=== PATIENT | female | born 1985 | race Caucasian/White ===

== ENCOUNTER 2023-08-29 16:24 | Emergency (ER) | payer MEDICARE, MEDICAID ==
[2023-08-29 17:44] LABS: BASOPHILS % (AUTO) 0.3 %; EOSINOPHILS # (AUTO) 0.1 10^3/uL (0.0-0.7); EOSINOPHILS % (AUTO) 1.2 %; HCT - HEMATOCRIT 25.1 % (37.0-47.0); HGB - HEMOGLOBIN 8.2 g/dL (12.0-16.0); LYMPHOCYTES # (AUTO) 0.2 10^3/uL (1.5-3.5); LYMPHOCYTES % (AUTO) 3.1 %; MEAN CORPUSCULAR HEMOGLOBIN 32.8 pg (27.0-31.0); MEAN CORPUSCULAR HGB CONC 32.7 g/dL (32.0-36.0); MEAN CORPUSCULAR VOLUME 100.4 fL (81.0-99.0); MONOCYTES # (AUTO) 0.7 10^3/uL (0.0-1.0); MONOCYTES % (AUTO) 8.5 %; NEUTROPHILS # (AUTO) 6.6 10^3/uL (1.5-6.6); NEUTROPHILS % (AUTO) 86.2 %; WHITE BLOOD COUNT 7.6 x10^3/uL (4.8-10.8)
[2023-08-29 17:51] LABS: POTASSIUM 3.2 mmol/L (3.5-4.5)
[2023-08-29 17:56] LABS: ALBUMIN 3.1 g/dL (3.2-5.5); ALBUMIN/GLOBULIN RATIO 0.9 (1.0-2.2); CALCIUM 8.7 mg/dL (8.5-10.3); TOTAL PROTEIN 6.5 g/dL (6.4-8.9)
[2023-08-29 18:06] LABS: PLT - PLATELET COUNT 27 10^3/uL (130-450)
[2023-08-29 18:18] LABS: PLATELET ESTIMATE, MANUAL DECREASED (<130,000) (NORMAL); PLATELET MORPHOLOGY NORMAL APPEARANCE (NORMAL); SLIDE REVIEW? Indicated
[2023-08-29] MEDS: PROMETHAZINE 25 MG/1 ML VIAL IM STA (18:22)
[2023-08-29] MEDS: BUPRENORPHINE/NALOXONE 8-2 MG TAB SL STA (18:22)
[2023-08-29] MEDS: LORazepam 2 MG/ML VIAL IM STA (18:22)
--- NOTE | 2023-08-29 18:28 | ED Physician Documentation ---
History of Present Illness - Stated complaint Stated Complaint: PX MANAGEMENT - Chief complaint Chief Complaint: Abd Pain - History obtained from History obtained from: Patient - History of Present Illness Timing: Today Pain level max: 5 Pain level now: 5 - Additonal information Additional information: Roxanna is a 38-year-old female with a history of liver cirrhosis, cared for at [facility] in [place]. She also has care at [facility]. She comes in today stating that she has not had her Suboxone for the past 3 days. She states that she is having increasing ascites again. No chills. Last paracentesis was 3 days ago at [facility]. She states she is concerned about potential internal bleeding as well. Her stools are no different than usual. No vomiting. She is requesting pain medication, nausea medication and anxiety medication. Patient denies any fevers, vomiting. She states that she is currently on tube feedings. 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 Review of Systems Constitutional: denies: Fever, Chills Throat: denies: Sore throat Cardiac: denies: Chest pain / pressure, Palpitations Respiratory: denies: Dyspnea, Cough GI: denies: Vomiting, Diarrhea, Hematemesis, Bloody / black stool : denies: Dysuria, Frequency, Hesitancy Skin: denies: Rash Musculoskeletal: denies: Neck pain, Back pain Neurologic: denies: Headache PD PAST MEDICAL HISTORY - Past Medical History Past Medical History: Yes Cardiovascular: Deep vein thrombosis GI: Other Psych: ADD/ADHD - Past Surgical History Past Surgical History: Yes General: Liver surgery - Present Medications Home Medications: Ambulatory Orders Medication Instructions Recorded Confirmed Dextroamphetamine/Amphetamine 15 mg PO BID 02/15/14 07/06/14 [Amphetamine Salts 15 mg Tablet] Methadone HCl 100 gm MC DAILY 02/15/14 07/06/14 Promethazine [Phenergan] 25 - 50 mg PO Q6H PRN 02/15/14 07/06/14 Erythromycin Base [Erythromycin] 1 applic OP Q4H #1 tub 07/06/14 clonazePAM [Clonazepam] 1 mg PO BID 07/06/14 07/06/14 - Allergies Allergies/Adverse Reactions: Allergies Allergy/AdvReac Type Severity Reaction Status Date / Time No Known Drug Allergies Allergy Verified 08/29/23 16:35 - Social History Does the pt smoke?: Yes Smoking Status: Current every day smoker Does the pt drink ETOH?: No Does the pt have substance abuse?: No - Immunizations Immunizations are current?: No PD ED PE NORMAL - Vitals Vital signs reviewed: Yes - General General: Alert and oriented X 3, No acute distress, Other (Jaundiced female) - HEENT HEENT: PERRL, Moist mucous membranes - Neck Neck: Supple, no meningeal sign - Cardiac Cardiac: RRR, Strong equal pulses - Respiratory Respiratory: No respiratory distress, Clear bilaterally - Abdomen Abdomen: Normal bowel sounds, Soft, Non tender, Other (Distended abdomen, soft, nontender. Not tense.) - Derm Derm: Warm and dry - Extremities Extremities: No edema - Neuro Neuro: Alert and oriented X 3 - Psych Psych: Normal mood, Normal affect Results - Vitals Vitals: Vital Signs - 24 hr 08/29/23 08/29/23 08/29/23 16:31 17:56 18:35 Temperature 36.8 C 37.1 C Heart Rate 88 75 79 Respiratory 16 24 24 Rate Blood Pressure 122/51 L 119/66 94/59 L O2 Saturation 100 100 100 08/29/23 19:11 Temperature 36.8 C Heart Rate 81 Respiratory 17 Rate Blood Pressure 99/59 L O2 Saturation 99 Oxygen O2 Source Room air - Labs Labs: Laboratory Tests 08/29/23 08/29/23 17:30 17:30 WBC 7.6 RBC 2.50 L Hgb 8.2 L Hct 25.1 L MCV 100.4 H MCH 32.8 H MCHC 32.7 RDW 22.0 H Plt Count 27 L* Neut # (Auto) 6.6 Lymph # (Auto) 0.2 L [place] # (Auto) 0.7 Eos # (Auto) 0.1 Baso # (Auto) 0.0 Absolute Nucleated RBC 0.00 Nucleated RBC % 0.0 Manual Slide Review Indicated Platelet Estimate DECREASED (<130,000) Platelet Morphology NORMAL APPEARANCE RBC Morph Micro Appear 1+ SCHISTOCYTES Sodium 136 Potassium 3.2 L Chloride 108 Carbon Dioxide 20 L Anion Gap 8.0 BUN 45 H Creatinine 1.0 Estimated GFR (MDRD) 62 L Glucose 116 H Calcium 8.7 Total Bilirubin 52.2 H AST 598 H ALT 81 H Alkaline Phosphatase 243 H Total Protein 6.5 Albumin 3.1 L Globulin 3.4 Albumin/Globulin Ratio 0.9 L Lipase 110 H PD Medical Decision Making - ED course Complexity details: reviewed results, re-evaluated patient, considered differential, d/w patient ED course: Patient with chronic anemia, chronic thrombocytopenia. She has significant hy perbilirubinemia. Has labs consistent with liver failure. Patient states that she will follow-up as an outpatient for her paracentesis. Her labs are no different than her recent laboratory studies at [facility]. She is in no respiratory distress. Does not have tense ascites. No evidence of active bleeding. Recommend that she follow-up with her doctor for further care. Informed her that her Suboxone prescription is ready at her pharmacy in [place]. Patient states that she does not have any other needs for the emergency department at this time. Patient counseled regarding signs and symptoms for which I believe and urgent re-evaluation would be necessary. Patient with good understanding of and agreement to plan and is comfortable going home at this time This document was made in part using voice recognition software. While efforts are made to proofread this document, sound alike and grammatical errors may occur. Departure - Departure Disposition: Home, Self Care Clinical Impression: Thrombocytopenia Liver failure Qualifiers: Liver failure chronicity: unspecified chronicity Hepatic coma status: without hepatic coma Qualified Code(s): K72.90 - Hepatic failure, unspecified without coma Cirrhosis Qualifiers: Hepatic cirrhosis type: unspecified hepatic cirrhosis Ascites presence: with a scites Qualified Code(s): K74.60 - Unspecified cirrhosis of liver Anemia Qualifiers: Anemia type: unspecified type Qualified Code(s): D64.9 - Anemia, unspecified Condition: Good Instructions: ED Abdominal Pain Female Non-Specific Abdominal Pain Follow-Up: your,doctor in 1 week [Other] Comments: As we discussed your Suboxone was filled at [facility] in [place] on August 25. 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 You were given your dose of Suboxone today. You are also given Ativan, Phenergan and Benadryl. Your blood counts are stable from your visit at [facility] a few days ago. Recommend that you follow-up as an outpatient for scheduled paracentesis as this is a safer way to do this procedure. Your doctor can send an order to the radiology department here to have the paracentesis scheduled. Please follow-up with your doctor for further care. Forms: PCP List Discharge Date/Time: 08/29/23 19:13
[2023-08-29] MEDS: diphenhydrAMINE INJ 50 MG/ML VIAL IM STA (18:34)
[2023-08-29 19:16] VITALS: BP 99/59; O2SAT 99
[2023-08-29 19:26] LABS: BILIRUBIN,TOTAL 52.2 mg/dL (0.2-1.0)
== END 2023-08-29 19:13 | disposition home or self-care (01) ==
LOC: ED 16:24
DX: D69.6 Thrombocytopenia, unspecified (principal); K70.31 Alcoholic cirrhosis of liver with ascites; K72.90 Hepatic failure, unspecified without coma; D64.9 Anemia, unspecified; T50.996A Underdosing of other drugs, medicaments and biological substances, initial encounter; F17.200 Nicotine dependence, unspecified, uncomplicated
CPT/HCPCS: 36415; 80053; 83690; 85025; 96372; 99283; 99284; J1200; J2060

== ENCOUNTER 2023-08-30 17:39 | Emergency (ER) | payer MEDICARE, MEDICAID ==
--- NOTE | 2023-08-30 18:16 | ED Physician Documentation ---
History of Present Illness - Stated complaint Stated Complaint: FEEDING TUBE OUT - Chief complaint Chief Complaint: General - History obtained from History obtained from: Patient (She has a history of liver failure. She is on hyperalimentation pretransplant and her feeding tube fell out this morning and would like it replaced.) PD PAST MEDICAL HISTORY - Past Medical History Past Medical History: Yes Cardiovascular: Deep vein thrombosis GI: Other Psych: ADD/ADHD - Past Surgical History Past Surgical History: Yes General: Liver surgery - Present Medications Home Medications: Ambulatory Orders Medication Instructions Recorded Confirmed Dextroamphetamine/Amphetamine 15 mg PO BID 02/15/14 07/06/14 [Amphetamine Salts 15 mg Tablet] Methadone HCl 100 gm MC DAILY 02/15/14 07/06/14 Promethazine [Phenergan] 25 - 50 mg PO Q6H PRN 02/15/14 07/06/14 Erythromycin Base [Erythromycin] 1 applic OP Q4H #1 tub 07/06/14 clonazePAM [Clonazepam] 1 mg PO BID 07/06/14 07/06/14 - Allergies Allergies/Adverse Reactions: Allergies Allergy/AdvReac Type Severity Reaction Status Date / Time No Known Drug Allergies Allergy Verified 08/30/23 17:57 - Social History Does the pt smoke?: Yes Smoking Status: Current every day smoker Does the pt drink ETOH?: No Does the pt have substance abuse?: No - Immunizations Immunizations are current?: No PD ED PE NORMAL - Vitals Vital signs reviewed: Yes - General General: Alert and oriented X 3, Other (Very jaundiced) - Abdomen Abdomen: Other (Distended nontender abdomen) - Neuro Neuro: Alert and oriented X 3 Results - Vitals Vitals: Vital Signs - 24 hr 08/30/23 08/30/23 08/30/23 17:50 17:56 19:31 Temperature 37.2 C 37.5 C Heart Rate 88 88 82 Respiratory 20 20 18 Rate Blood Pressure 112/47 L 112/47 L 115/55 L O2 Saturation 100 100 98 Oxygen O2 Source Room air - Rads (name of study) Abdominal x-ray Relevant Findings:: Final report received, EMP independent interpretation of test (Radiologist felt that it was curled but I feel the tip is still in the stomach and usable.) PD Medical Decision Making - ED course ED course: Replace her feeding tube, she had a 10 [place], we only had an 8 [place]. It did curl in the retropharynx a couple of times but it responded to repositioning. Subsequently x-ray demonstrated curling in the stomach. I think it is still serviceable pending follow-up. Departure - Departure Disposition: 01 Home, Self Care Clinical Impression: Encounter for feeding tube placement Condition: Good Record reviewed to determine appropriate education?: Yes Instructions: Tube NG Care Dc Comments: The feeding tube is in the stomach and you can start using it as per usual. Follow-up for paracentesis and other specialty care as per usual. Return for new or worsening symptoms. Forms: PCP List Discharge Date/Time: 08/30/23 19:36
[2023-08-30] MEDS: PHENOL THROAT SPRAY 177 ML MM STA (18:38)
[2023-08-30 19:36] VITALS: BP 115/55; O2SAT 98
--- NOTE | 2023-08-30 19:57 | XRAY Report ---
PROCEDURE: No-Charge 1V Abdomen INDICATIONS: Small bore NG tube placement TECHNIQUE: 1 view of the abdomen were acquired. COMPARISON: None. FINDINGS: Surgical changes and devices: NG tube is curled in the proximal stomach and the tip is directed cran ially at the GE junction. Suggest redirection prior to use. Bowel: No pneumoperitoneum. Bowel gas pattern demonstrates scattered fluid levels and overall paucit y of gas in the abdomen. No dilated bowel loops. Soft tissues: No masses; visualized solid organ contours appear normal in size. No suspicious abdom inal calcifications. Probable small right pleural effusion Bones: No suspicious bony abnormalities. IMPRESSION: Suggest redirection of nasogastric tube prior to use. Reviewed by: Jessica Dumas MD on 08/30/2023 7:56 PM PDT Approved by: Jessica Dumas MD on 08/30/2023 7:56 PM PDT Station ID: [id number]
== END 2023-08-30 19:36 | disposition home or self-care (01) ==
LOC: ED 17:39
DX: T85.528A Displacement of other gastrointestinal prosthetic devices, implants and grafts, initial encounter (principal); Y73.1 Therapeutic (nonsurgical) and rehabilitative gastroenterology and urology devices associated with adverse incidents; K72.90 Hepatic failure, unspecified without coma; F17.200 Nicotine dependence, unspecified, uncomplicated
CPT/HCPCS: 74018; 99283; 99284; A9270

== ENCOUNTER 2023-08-31 06:09 | Emergency (ER) | payer MEDICARE, MEDICAID ==
[2023-08-31 06:51] VITALS: BP 116/50; O2SAT 100
--- NOTE | 2023-08-31 07:18 | ED Physician Documentation ---
History of Present Illness - Stated complaint Stated Complaint: FEED TUBE - Chief complaint Chief Complaint: Abd Pain - History obtained from History obtained from: Patient, Family - Additonal information Additional information: This is a 38-year-old female with a history of liver failure due to biliary atresia. She is pretransplant and is followed with hepatology down at [facility]. She has multiple visits tomorrow. She is having accumulation of her ascitic fluid and is trying to arrange paracentesis. She is no fevers chills no nausea or vomiting. She saw Dr. Avila here yesterday and he replaced her feeding tube. It came out this morning. She is getting an enteral feeds in anticipation of her transplant workup. PD PAST MEDICAL HISTORY - Past Medical History Past Medical History: Yes Cardiovascular: Deep vein thrombosis Neuro: None GI: Cirrhosis, Other HEENT: None Psych: ADD/ADHD - Past Surgical History Past Surgical History: Yes General: Liver surgery - Present Medications Home Medications: Ambulatory Orders Medication Instructions Recorded Confirmed Dextroamphetamine/Amphetamine 15 mg PO BID 02/15/14 08/31/23 [Amphetamine Salts 15 mg Tablet] Methadone HCl 100 gm MC DAILY 02/15/14 08/31/23 Promethazine [Phenergan] 25 - 50 mg PO Q6H PRN 02/15/14 08/31/23 Erythromycin Base [Erythromycin] 1 applic OP Q4H #1 tub 07/06/14 08/31/23 clonazePAM [Clonazepam] 1 mg PO BID 07/06/14 08/31/23 - Allergies Allergies/Adverse Reactions: Allergies Allergy/AdvReac Type Severity Reaction Status Date / Time No Known Drug Allergies Allergy Verified 08/31/23 06:49 - Social History Does the pt smoke?: Yes Smoking Status: Current every day smoker Does the pt drink ETOH?: No Does the pt have substance abuse?: No - Immunizations Immunizations are current?: No PD ED PE NORMAL - General General: Alert and oriented X 3 - Abdomen Abdomen: Other (Distended. Obvious ascites. no peritonitis) - Derm Derm: Other (icteric) Results - Vitals Vitals: Vital Signs - 24 hr 08/31/23 08/31/23 06:42 09:10 Temperature 37 C Heart Rate 76 Respiratory 19 Rate Blood Pressure 116/50 L O2 Saturation 100 Oxygen O2 Source Room air - Rads (name of study) X-ray abdomen Relevant Findings:: EMP independent interpretation of test (Feeding tube looks good.), See rad report (The tip of the feeding tube can be seen overlying the distal stomach. ) PD Medical Decision Making - ED course ED course: Her feeding tube is replaced with adequate placement confirmed by x-ray. She tolerated this actually quite well. She can continue her tube feeds at home. She is desirous of having paracentesis there is no fever or signs of peritonitis and no indication for emergent paracentesis. She can follow-up with her audiovisual equipment operator to discuss symptomatic paracentesis. Departure - Departure Disposition: 01 Home, Self Care Clinical Impression: Feeding tube dysfunction Condition: Fair Comments: You feeding tube is now appropriately placed. Continue to do feeds as before. Follow-up with your audiovisual equipment operator tomorrow as planned. Forms: PCP List
[2023-08-31] MEDS: PROMETHAZINE 25 MG/1 ML VIAL IM STA (07:43)
[2023-08-31] MEDS: diphenhydrAMINE INJ 50 MG/ML VIAL IM STA (08:00)
[2023-08-31] MEDS: LIDOCAINE VISCOUS 2% 15 ML UDC MM STA (08:31)
--- NOTE | 2023-08-31 09:25 | XRAY Report ---
PROCEDURE: No-Charge 1V Abdomen INDICATIONS: feeding tube placement TECHNIQUE: 1 view of the abdomen were acquired. COMPARISON: 08/30/2023 FINDINGS: Surgical changes and devices: A feeding tube has been placed, the tip overlying the distal stomach. The previously seen nasogastric tube has been removed. Bowel: No pneumoperitoneum. The bowel gas pattern is normal. Stool load within normal limits. Soft tissues: No masses; visualized solid organ contours appear normal in size. No suspicious abdom inal calcifications. Bones: No suspicious bony abnormalities. IMPRESSION: The tip of the feeding tube can be seen overlying the distal stomach. Reviewed by: Jose Alberto Davis MD on 08/31/2023 8:24 AM SVETA Approved by: Jose Alberto Davis MD on 08/31/2023 8:24 AM SVETA Station ID: [id number]
[2023-08-31] MEDS: LORazepam 2 MG/ML VIAL IM STA (10:59)
== END 2023-08-31 10:59 | disposition home or self-care (01) ==
LOC: ED 06:09
DX: Z43.1 Encounter for attention to gastrostomy (principal); K74.60 Unspecified cirrhosis of liver; R18.8 Other ascites; F17.200 Nicotine dependence, unspecified, uncomplicated
CPT/HCPCS: 74018; 96372; 99283; J1200; J2060

== ENCOUNTER 2023-08-31 13:15 | Outpatient (CLI) | payer MEDICARE, MEDICAID | END 2023-08-31 23:59 | disposition short-term general hospital (02) | LOC: EMS 13:15 | DX: Z04.6 Encounter for general psychiatric examination, requested by authority (principal); R41.0 Disorientation, unspecified; R46.4 Slowness and poor responsiveness; R53.83 Other fatigue; R53.81 Other malaise; R18.8 Other ascites; R17 Unspecified jaundice; R53.1 Weakness | CPT/HCPCS: A0425; A0429 ==